=== PATIENT | female | born 1935 | race Caucasian/White ===

== ENCOUNTER 2018-09-07 10:43 | Emergency (ER) | payer OTHER ==
[~2018-09-07] VITALS: Ht 165.1 cm; Wt 88.0 kg
[2018-09-07 10:48] VITALS: Ht 165.1 cm; Wt 88.0 kg
[2018-09-07] MEDS ORDERED: SODIUM CHLORIDE 0.9% 1L BAG IV* STA (10:55)
[2018-09-07] MEDS ORDERED: IPRATROPIUM (NEB) 0.5 MG/2.5 ML AMP INH STA (10:55)
[2018-09-07] MEDS ORDERED: ALBUTEROL 0.5% (NEB) 2.5 MG/0.5 ML AMP INH STA (10:55)
[2018-09-07] MEDS ORDERED: METHYLPREDNISOLONE 125 MG INJ IV STA (10:55)
[2018-09-07] MEDS ORDERED: CEFEPIME 1GM/50 ML (PMX) 50 ML IVPB ONE (11:00)
[2018-09-07] MEDS ORDERED: IBUPROFEN 600 MG TAB PO ONE (11:00)
--- NOTE | 2018-09-07 11:05 | ERD ---
ER Documentation Chief Complaint Chief Complaint BIBA D/T SOB STARTING LAST NIGHT HPI 82-year-old woman brought in by EMS from senior care for cough, congestion, fever, shortness of breath beginning last night. She has a long history of COPD, obesity, and hypertension. She denies chest pain, no calf or leg swelling, no vomiting or diarrhea, no headache or blurry vision. Patient was transported here by EMS without further complications ROS All systems reviewed and are negative except as per history of present illness. Allergies Allergies: Coded Allergies: Penicillins (Verified Allergy, Unknown, 09/07/18) PMhx/Soc COPD, obesity, hypertension, atrial fibrillation, Micanopy's syndrome FmHx Family History: No diabetes Physical Exam Vitals Vital Signs Date Temp Pulse Resp B/P (MAP) Pulse Ox O2 O2 Flow FiO2 Time Delivery Rate 09/07/18 Non 6 11:21 Rebreather 09/07/18 99.0 90 20 162/97 100 10:48 (118) Physical Exam GENERAL: Well-developed, well-nourished, appears dehydrated, dyspneic, febrile HEENT: Dry mucous membranes, pink conjunctiva, no cervical spine tenderness or step-off deformities, no goiter NEURO: Alert and oriented 3, cranial nerves II through XII intact bilaterally, pupils equal round reactive to light, CARDIAC: Tachycardic and regular, no murmurs rubs or gallops LUNGS: Crackles and wheezes bilaterally, no stridor, poor entry ABDOMEN: Soft protuberant abdomen, no guarding or rigidity, nontender SKIN: Warm and dry to touch, no abrasions, contusions, or hematomas, no lacerations, no ecchymosis, no target lesions, and without ulcers EXTREMITIES: No clubbing cyanosis or edema, calves are bilaterally symmetrical, no Homans sign, no popliteal cord sign. Distal pulses equal and bilateral PSYCH: Normal affect without agitation or irritability Result Diagram: 09/07/18 1108 09/07/18 1107 Results 24 hrs Laboratory Tests Test 09/07/18 11:07 09/07/18 11:08 09/07/18 11:15 09/07/18 11:49 Prothrombin Time 12.7 Sec Prothrombin Time 1.0 Ratio INR 0.94 International Normalized Ratio Activated 27.4 Sec Partial Thrombop last Time Sodium Level 138 mmol/L Potassium Level 4.1 mmol/L Chloride Level 95 mmol/L Carbon Dioxide 34 mmol/L Level Anion Gap 9 Blood Urea 16 mg/dl Nitrogen Creatinine 0.50 mg/dl Est Glomerular mL/min Filtrat Rate mL/min Glucose Level 111 mg/dl Calcium Level 9.6 mg/dl Total Bilirubin 1.0 mg/dl Direct Bilirubin 0.00 mg/dl Indirect 1.0 mg/dl Bilirubin Aspartate Amino 38 IU/L Transf (AST/SGOT ) Alanine 61 IU/L Aminotransferase (ALT/SGPT) Alkaline 101 IU/L Phosphatase Troponin I < 0.012 ng/ml C-Reactive 4.9 mg/dl Protein B-Type 1310 PG/ML Natriuretic Peptide Total Protein 7.0 g/dl Albumin 3.6 g/dl Globulin 3.40 g/dl Albumin/Globulin 1.05 Ratio Lipase 21 U/L White Blood 12.7 10^3/ul Count Red Blood Count 4.16 10^6/ul Hemoglobin 13.0 g/dl Hematocrit 40.5 % Mean Corpuscular 97.4 fl Volume Mean Corpuscular 31.3 pg Hemoglobin Mean Corpuscular 32.1 g/dl Hemoglobin Brenna nt Red Cell 14.9 % Distribution Width Platelet Count 211 10^3/UL Mean Platelet 11.3 fl Volume Immature 0.500 % Granulocytes % Neutrophils % 85.4 % Lymphocytes % 5.6 % Monocytes % 7.2 % Eosinophils % 0.9 % Basophils % 0.4 % Nucleated Red 0.0 /100WBC Blood Cells % Immature 0.060 10^3/ul Granulocytes # Neutrophils # 10.8 10^3/ul Lymphocytes # 0.7 10^3/ul Monocytes # 0.9 10^3/ul Eosinophils # 0.1 10^3/ul Basophils # 0.1 10^3/ul Nucleated Red 0.0 10^3/ul Blood Cells # Blood Gas Blood arterial Specimen Source Arterial Blood 09/07/2018 11:16 Date Drawn :12 AM Arterial Blood 7.403 pH (Temp corrected) Arterial Blood 64.7 mmhg pCO2 (Temp correct) Arterial Blood 316.1 mmHG pO2 (Temp corrected) Arterial Blood 39.4 mmol/L HCO3 Arterial Blood 11.9 mmol/L Base Excess Arterial Blood 99.4 mmHG Oxygen Saturatio n Edison Test ACCEPTAB Arterial Blood Right Radial Gas Puncture Site Arterial 0.7 % Blood Carboxyhem oglobin Arterial Blood 0.1 % Methemoglobin Blood Gas A-a O2 193.7 mmHg Differential Oxyhemoglobin 98.6 % Percent Blood Gas 37.0 C Temperature Blood Gas MASK - NRB Modality FiO2 81.0 % Blood Gas Sandeep.Milena Notified Whom Blood Gas 09/07/2018 11:24 Notified Time :36 AM POC Venous 0.8 mmol/L Lactate Lactic Acid 1.2 mmol/L Level Current Medications Medications Dose Sig/Jorge Start Time Status Last (Trade) Ordered Route PRN Stop Time Admin Dose Reason Admin Sodium 2,640 ml BOLUS OVER 2 09/07/18 DC Chloride HOURS STAT 10:55 (NS) IV* 09/07/18 12:00 Ibuprofen 600 mg ONCE ONCE 09/07/18 DC (Motrin) PO 11:00 09/07/18 11:18 Cefepime HCl 50 ml @ ONCE ONCE 09/07/18 DC 100 mls/hr IVPB 11:00 09/07/18 11:29 Albuterol 10 mg ONCE STAT 09/07/18 DC 09/07/18 (Proventil INH 10:55 11:30 0.5% (Neb)) 09/07/18 11:18 Ipratropium 1 mg ONCE STAT 09/07/18 DC 09/07/18 [place] INH 10:55 11:30 (Atrovent 09/07/18 11:18 0.02% (Neb)) 125 mg ONCE STAT 09/07/18 DC Methylprednis IV 10:55 olone Sodium 09/07/18 11:18 Succinate (Solu-Medrol) Furosemide 40 mg ONCE ONCE 09/07/18 UNV (Lasix) IV 12:00 09/07/18 12:01 Enalaprilat 1.25 mg ONCE ONCE 09/07/18 UNV (Vasotec Iv) IV 12:00 09/07/18 12:01 Procedures/MDM IV line was established patient was placed on monitoring engineer rhythm strip revealed a narrow complex tachycardia at 100 bpm with upright P and T waves. Patient was febrile, blood and urine cultures have been ordered results are pending I will follow-up. I administered ibuprofen 600 mg p.o., methylprednisolone 125 mg IV x1, albuterol 10 mg via nebulizer, ipratropium 1 mg via nebulizer, ceftriaxone 1 g IV, and azithromycin 500 mg IV for possible pneumonia EKG performed, read by me revealed a normal sinus rhythm at 92 bpm, Normal axis, right bundle branch block, no concerning ST elevations or depressions noted 1 view chest x-ray performed, read by me revealed a left lower lobe infiltrate, and mild congestion bilaterally, no pneumothorax. ABG was performed on low-flow oxygen revealing a pH of 7.4, PCO2 65, PO2 316 consistent with respiratory acidosis and mild hypercapnia CBC reveals a mild leukocytosis of 13, electrolytes were unremarkable, liver function tests normal, troponin negative, BNP elevated at 1300, C-reactive protein elevated at 4.9 Patient has mild CHF so I administered furosemide 40 mg IV x1 Lactic acid was very low and I do not suspect sepsis. Critical Care: Time: 43 minutes, this was time separate from other billable procedures. Treatments/Evaluations: Close monitoring and treatment of unstable vital signs, cardiorespiratory, and neurologic status, while maintaining tight balance of fluid, respiratory, and cardiac interventions. Daughter's name is Dr. Davis [phone] Patient will be admitted to telemetry setting for continued medical management, diuresis, and bronchodilator therapy. 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
[2018-09-07] MEDS ORDERED: FUROSEMIDE 40 MG INJ IV ONE (12:00)
[2018-09-07] MEDS ORDERED: ENALAPRILAT 1.25 MG INJ IV ONE (12:00)
[2018-09-07] MEDS ORDERED: METO-429 PO (13:39)
[2018-09-07] MEDS ORDERED: ZINC 100 MG PO (13:40)
[2018-09-07] MEDS ORDERED: RANI150T5 PO (13:40)
[2018-09-07] MEDS ORDERED: THEO200C3 PO (13:40)
[2018-09-07] MEDS ORDERED: MONT10TA24 PO (13:41)
[2018-09-07] MEDS ORDERED: ASPI-817 PO (13:41)
[2018-09-07] MEDS ORDERED: TRAM50TA PO (13:42)
[2018-09-07] MEDS ORDERED: CHOL200056 PO (13:42)
[2018-09-07] MEDS ORDERED: ACET-141 PO (13:42)
[2018-09-07] MEDS ORDERED: ALBU90AE INHALATION (13:43)
[2018-09-07] MEDS ORDERED: MOME13HF INHALATION (13:44)
[2018-09-07 13:46] VITALS: BP 137/74; PULSE 84; RESP 22
[2018-09-07] MEDS ORDERED: NYST15CR28 TOP (13:46)
[2018-09-07] MEDS ORDERED: LIDO700A45 TP (13:47)
[2018-09-07] MEDS ORDERED: [UNRECOGNIZED DRUG - CODE] PO (13:48)
== END 2018-09-07 14:21 | disposition short-term general hospital (02) ==
LOC: E/R 10:43
DX: J44.1 Chronic obstructive pulmonary disease with (acute) exacerbation (principal); J18.1 Lobar pneumonia, unspecified organism; I50.41 Acute combined systolic (congestive) and diastolic (congestive) heart failure; E66.9 Obesity, unspecified; I10 Essential (primary) hypertension
CPT/HCPCS: 36600; 71045; 80053; 82803; 83605; 83690; 83880; 84484; 85025; 85610; 85730; 86140; 86850; 86900; 86901; 87040; 87400; 93005; 94644; 96374; 96375; 99285; J0692; J2930; J7030

== ENCOUNTER 2018-10-25 08:51 | Emergency (ER) | payer OTHER ==
[~2018-10-25] VITALS: Ht 165.1 cm; Wt 86.4 kg
[~2018-10-25 08:51] MED LIST: ACET-141 PO; ALBU18HF INHALATION; ALBU90AE INHALATION; ASPI-817 PO; CHOL200056 PO; CITA10TA5 PO; GUAI100L79 PO; LIDO700A45 TP; METO-429 PO; MOME13HF INHALATION; MONT10TA24 PO; NYST15CR28 TOP; PRED5TAB PO; RANI150T5 PO; THEO200C3 PO; TRAM50TA PO; ZINC 100 MG PO
[2018-10-25 08:53] VITALS: Ht 165.1 cm; Wt 86.4 kg
[2018-10-25] MEDS ORDERED: ALBUTEROL 0.5% (NEB) 2.5 MG/0.5 ML AMP INH STA (09:05)
[2018-10-25] MEDS ORDERED: predniSONE 20 MG TAB PO STA (09:05)
[2018-10-25] MEDS ORDERED: ACETAMINOPHEN 325 MG TAB ONE (11:26)
[2018-10-25] MEDS ORDERED: FUROSEMIDE 20 MG INJ IV ONE (11:30)
[2018-10-25] MEDS ORDERED: ACETAMINOPHEN 325 MG TAB PO ONE (11:30)
[2018-10-25 13:17] VITALS: BP 168/83; PULSE 99; RESP 23
== END 2018-10-25 13:29 | disposition home or self-care (01) ==
LOC: E/R 08:51
DX: J45.901 Unspecified asthma with (acute) exacerbation (principal); I10 Essential (primary) hypertension; R06.02 Shortness of breath; Z91.040 Latex allergy status; Z79.82 Long term (current) use of aspirin
CPT/HCPCS: 36415; 71045; 80048; 83605; 83880; 84484; 85025; 85610; 85730; 93005; 94664; 99285; J1940; J7512